=== PATIENT | female | born 1955 | race Caucasian/White ===

== ENCOUNTER 2024-05-26 11:54 | Observation (INO) | payer BC ==
[2024-05-26] MEDS: SODIUM CHLORIDE 0.9% 1000 ML INFUS.BAG IV ONE (12:47)
[2024-05-26 13:10] LABS: HEMATOCRIT 41.8 % (32.4-45.2); HEMOGLOBIN 13.7 G/dL (10.7-15.3); MCH 26.8 pg (25.7-33.7); MCHC 32.8 g/dl (32.0-36.0); MEAN CELL VOLUME 81.9 fl (80-96); MEAN PLT VOLUME 8.3 fl (7.5-11.1); PLATELET COUNT 279.2 10^3/uL (134-434); RDW 14.3 % (11.6-15.6); WHITE BLOOD COUNT 9.7 10^3/uL (4.0-10.8)
[2024-05-26 13:13] LABS: ALBUMIN 4.5 g/dl (3.4-5.0); BILIRUBIN,TOTAL 0.8 mg/dl (0.2-1); CALCIUM 9.5 mg/dl (8.5-10.1); CREATININE 0.9 mg/dl (0.6-1.3); POTASSIUM 3.9 mmol/L (3.5-5.1); TOT PROT 7.3 g/dl (6.4-8.2)
[2024-05-26 13:15] LABS: PLATELET ESTIMATE ADEQUATE
[2024-05-26] MEDS ORDERED: PIPERACILLIN/TAZOBACTAM 3.375 GM VIAL IVPB ONE (18:12)
[2024-05-26] MEDS: PIPERACILLIN/TAZOB 3.375 GM 3.375 GM in DEXTROSE 5%-WATER - 50 ML IVPB ONE (18:17)
[2024-05-26] MEDS ORDERED: ONDANSETRON 4 MG/2 ML VIAL IVPUSH PRN (18:34)
[2024-05-26] MEDS ORDERED: ACETAMINOPHEN INJECTION 100 ML IVPB ONE (18:41)
[2024-05-26] MEDS: ACETAMINOPHEN 1000 MG/100 ML BAG IVPB ONE (18:42)
[2024-05-26] MEDS: LACTATED RINGERS SOLUTION 1,000 ML/1,000 ML INFUS.BAG IV SCH (19:02)
[2024-05-26] MEDS ORDERED: ACETAMINOPHEN 325 MG TABLET (FP) PO PRN (20:52)
[2024-05-26 21:17] VITALS: BMI 33.8
[2024-05-27] MEDS: PIPERACILLIN/TAZOB 3.375 GM 3.375 GM in DEXTROSE 5%-WATER - 50 ML IVPB SCH ×3 (02:02→11:00)
[2024-05-27] MEDS: KETOROLAC TROMETHAMINE 15 MG/ML VIAL IVPUSH ONE (06:55)
[2024-05-27 08:32] LABS: HEMATOCRIT 40.4 % (32.4-45.2); HEMOGLOBIN 13.2 G/dL (10.7-15.3); MCH 26.7 pg (25.7-33.7); MCHC 32.6 g/dl (32.0-36.0); MEAN CELL VOLUME 81.8 fl (80-96); MEAN PLT VOLUME 8.4 fl (7.5-11.1); PLATELET COUNT 302.1 10^3/uL (134-434); RBC 4.94 10^6/uL (3.60-5.2); RDW 14.4 % (11.6-15.6); WHITE BLOOD COUNT 10.1 10^3/uL (4.0-10.8)
[2024-05-27 09:22] LABS: CALCIUM 9.4 mg/dl (8.5-10.1); CREATININE 0.8 mg/dl (0.6-1.3); POTASSIUM 3.9 mmol/L (3.5-5.1)
[2024-05-27 10:19] LABS: PLATELET ESTIMATE SLT INCREASE
[2024-05-27 10:41] LABS: ALBUMIN 4.2 g/dl (3.4-5.0); BILIRUBIN,TOTAL 0.8 mg/dl (0.2-1); CALCIUM 9.5 mg/dl (8.5-10.1); CREATININE 0.8 mg/dl (0.6-1.3)
[2024-05-27] MEDS: amLODIPine BESYLATE 10 MG TABLET (FP) PO SCH (11:00)
[2024-05-27 17:33] LABS: BILIRUBIN,DIRECT 0.2 mg/dL (0.0-0.2)
[2024-05-27] MEDS: traMADol HCL 50 MG TABLET PO ONE (17:53)
[2024-05-27] MEDS: ACETAMINOPHEN 325 MG TABLET (FP) PO ONE (19:30)
[2024-05-28 08:54] LABS: ALBUMIN 4.1 g/dl (3.4-5.0); BILIRUBIN,TOTAL 0.8 mg/dl (0.2-1); CALCIUM 9.7 mg/dl (8.5-10.1); CREATININE 0.9 mg/dl (0.6-1.3); POTASSIUM 4.9 mmol/L (3.5-5.1); TOT PROT 6.7 g/dl (6.4-8.2)
[2024-05-28 10:16] LABS: BASO % 0.5 % (0-2.0); EOS % 3.5 % (0-4.5); HEMATOCRIT 36.8 % (32.4-45.2); HEMOGLOBIN 12.6 GM/dL (10.7-15.3); LYMPH % 21.2 % (8-40); MCH 27.8 pg (25.7-33.7); MCHC 34.2 g/dl (32.0-36.0); MEAN CELL VOLUME 81.1 fl (80-96); MEAN PLT VOLUME 7.8 fl (7.5-11.1); MONO % 6.8 % (3.8-10.2); PLATELET COUNT 320 10^3/uL (134-434); RBC 4.54 M/mm3 (3.60-5.2); RDW 13.9 % (11.6-15.6); WHITE BLOOD COUNT 9.4 K/mm3 (4.0-10.0)
[2024-05-28] MEDS ORDERED: PANTOPRAZOLE 40 MG TABLET PO SCH (11:45)
[2024-05-29 10:31] LABS: BASO % 0.6 % (0-2.0); EOS % 2.8 % (0-4.5); HEMATOCRIT 36.5 % (32.4-45.2); HEMOGLOBIN 12.6 GM/dL (10.7-15.3); LYMPH % 23.1 % (8-40); MCH 27.5 pg (25.7-33.7); MCHC 34.5 g/dl (32.0-36.0); MEAN CELL VOLUME 79.7 fl (80-96); MEAN PLT VOLUME 6.9 fl (7.5-11.1); MONO % 7.3 % (3.8-10.2); NEUT % 66.2 % (42.8-82.8); PLATELET COUNT 349 10^3/uL (134-434); RBC 4.58 M/mm3 (3.60-5.2); RDW 13.9 % (11.6-15.6); WHITE BLOOD COUNT 8.4 K/mm3 (4.0-10.0)
[2024-05-29 11:09] LABS: POTASSIUM 4.4 mmol/L (3.5-5.1)
[2024-05-29 11:11] LABS: ALBUMIN 3.5 g/dl (3.4-5.0); BLOOD UREA NITROGEN 13.3 mg/dL (7-18); CALCIUM 9.2 mg/dL (8.5-10.1)
[2024-05-29 11:15] LABS: CREATININE 0.9 mg/dL (0.55-1.3)
[2024-05-29 11:16] LABS: BILIRUBIN,TOTAL 0.5 mg/dL (0.2-1); TOT PROT 7.3 g/dl (6.4-8.2)
[2024-05-29 15:23] VITALS: BP 138/74; PULSE 66; RESP 16; TEMP 98.9
[2024-05-30 00:09] LABS: FIBROSIS SCORE. 0.35 (0.00-0.21); HCV ALPHA 2 MACRO CHART 188 mg/dL (110-276); NECRO.INFLAM ACT.SCORE 0.82 (0.00-0.17); NECROINFLAM. ACTIVITY GRADE A3-Severe activity (.)
== END 2024-05-29 14:44 | disposition home or self-care (01) ==
LOC: FER 11:54 → FM/S 18:10 → UNDOADMOB 18:10 → FM/S 05-27 18:50 → J5S 05-28 16:48
PROVIDERS: ADMIT Internal Medicine; ATTEND Internal Medicine
PROC: 3E0333Z Introduction of Anti-inflammatory into Peripheral Vein, Percutaneous Approach (ICD-10-PCS; principal; 2024-05-26)
PROC: 3E0337Z Introduction of Electrolytic and Water Balance Substance into Peripheral Vein, Percutaneous Approach (ICD-10-PCS; 2024-05-26)
PROC: 3E033NZ Introduction of Analgesics, Hypnotics, Sedatives into Peripheral Vein, Percutaneous Approach (ICD-10-PCS; 2024-05-26)
PROC: 3E03329 Introduction of Other Anti-infective into Peripheral Vein, Percutaneous Approach (ICD-10-PCS; 2024-05-26)
DX: N15.1 Renal and perinephric abscess (principal); I10 Essential (primary) hypertension; R74.01 Elevation of levels of liver transaminase levels; Z86.16 Personal history of COVID-19; Z87.891 Personal history of nicotine dependence
CPT/HCPCS: 0241U-QW; 36415; 74177-TC; 74178-TC; 80048; 80053; 80076; 81003; 82172; 82977; 83010; 83883; 84460; 85025; 85027; 86704; 86705; 86708; 86850; 86900; 86901; 87086; 87340; 87350; 99285-25; G0378; J0131; Q9967